=== PATIENT | male | born 1945 | race Caucasian/White ===

== ENCOUNTER 2017-10-09 17:08 | Emergency (ER) | payer MEDICARE ==
[~2017-10-09] VITALS: Ht 182.9 cm; Wt 113.6 kg
[2017-10-09 17:11] VITALS: BP 137/68; PULSE 106; RESP 16; TEMP 97.8; O2SAT 97
--- NOTE | 2017-10-09 18:21 | RADRPT ---
EXAM DATE/TIME: 10/09/2017 17:59 [place] COMPARISON: No previous studies available for comparison. INDICATIONS : Fall yesterday pain in right 4th digit. MEDICAL HISTORY : None. SURGICAL HISTORY : None. ENCOUNTER: Initial ACUITY: 1 day PAIN SCORE: 0/10 LOCATION: Right 4th digit FINDINGS: Examination of the fourth digit of the right hand demonstrates no evidence of fracture or dislocation . No radiopaque foreign bodies are seen. The soft tissues are intact. CONCLUSION: No acute bony abnormality. Tim Valenzuela MD on October 09, 2017 at 18:18 Board Certified Radiologist. This report was verified electronically.
--- NOTE | 2017-10-09 20:29 | PD ---
HPI Chief Complaint: Injury Time Seen by Provider: 20:19 Travel History International Travel<30 days: No Contact w/Intl Traveler<30days: No Traveled to known affect area: No History of Present Illness HPI Patient comes to emergency department for evaluation of his right ring finger. Patient states he had a mechanical fall yesterday where he tripped fell landing on concrete with both hands. He states when he got up he noticed his right ring finger as well as about a 45 angle at the PIP joint pointed towards his middle finger. Patient states he pulled it popped back in place. Patient complaining of pain to palpation describes a sharp stabbing-like in nature. Denies anything making this better. Pains worse when he bumps it. Denies any numbness or tingling. Denies any head injury or loss of consciousness. Denies any chest pain or shortness of breath. Patient he is unable to fully flex his finger secondary to discomfort. Patient applied ice which helps some. Reports his tetanus shot is up-to-date. Patient is [id number]. PFSH Past Medical History Cancer: Yes (postate) Tetanus Vaccination: < 5 Years Past Surgical History Other Surgery: Yes Social History Alcohol Use: No Tobacco Use: No Substance Use: No Allergies-Medications (Allergen,Severity, Reaction): Coded Allergies: penicillin G (Verified Allergy, Severe, Nausea/Vomiting, 10/09/17) Reported Meds & Prescriptions Reported Meds & Active Scripts Active Active Prescriptions or Reported Medications Unobtainable Review of Systems Except as stated in HPI: all other systems reviewed are Neg Physical Exam Narrative GENERAL: Well-developed, overly nourished, in no acute distress, and non-ill appearing. SKIN: Focused skin assessment warm and dry. Small superficial abrasion noted over medial aspect of right ring finger middle phalanx. No crepitus or foreign body. No erythematous. Afebrile. HEAD: Atraumatic. Normocephalic. EYES: Pupils equal and round. EOMI. No scleral icterus. No injection or drainage. ENT: No nasal bleeding or discharge. Mucous membranes pink and moist. NECK: Trachea midline. Supple. No nuclear rigidity. CARDIOVASCULAR: Capillary refill less than 2 seconds. RESPIRATORY: No accessory muscle use. No respiratory distress. MUSCULOSKELETAL: No obvious deformities. No clubbing. No cyanosis. No edema. Decreased range of motion right ring finger proximal phalanx with flexion secondary to pain in swelling. No crepitus. Neurovascularly intact distally. NEUROLOGICAL: Awake and alert. No obvious cranial nerve deficits. Motor grossly within normal limits. Normal speech. PSYCHIATRIC: Appropriate mood and affect; insight and judgment normal. Data Data Last Documented VS Vital Signs Date Time Temp Pulse Resp B/P (MAP) Pulse Ox O2 Delivery O2 Flow Rate FiO2 10/09/17 20:41 87 20 138/74 (95) 99 10/09/17 17:11 97.8 Room Air Orders Orders Finger ([id number]) (10/09/17 ) Ed Discharge Order (10/09/17 20:23) Splint Or Brace Apply/Monitor (10/09/17 20:23) Finger Splint (10/09/17 ) MDM Medical Decision Making Medical Screen Exam Complete: Yes Emergency Medical Condition: Yes Interpretation(s) Last Impressions Finger X-Ray 10/09/17 0000 Signed Impressions: Service Date/Time: Monday, October 09, 2017 17:59 - CONCLUSION: No acute bony abnormality. Tim Valenzuela MD Differential Diagnosis Fracture, sprain, contusion, dislocation Narrative Course There is no clinical evidence for fracture. There is no clinical evidence to suspect bony injury by exam. Radiographic examination revealed no fracture seen at this time. No obvious ligamental injury or internal derangement is noted at this time. The distal extremity appears neurovascularly intact, without evidence of neurovascular injury nor compartment syndrome. Tendon exam also was intact. The effected finger was splinted. The patient was discharged oand given warnings for vascular compromise. The patient is to follow up with hand surgeon. The patient agrees with plan. Patient in no obvious distress upon re-evaluation. All pertinent Radiology result(s) discussed with patient. Any questions/concerns in reference to patient diagnosis/condition discussed and clarified prior to patient's discharge. Reinforced sheer importance of close follow up with patient's primary physician or primary care clinic. Instructed patient to return to ED immediately, if symptoms return/worsen. Patient showed understanding of above instructions. Further instructions and recommendations were detailed in discharge paperwork. Patient ambulated without difficulty out of ED at discharge. Diagnosis Primary Impression: Injury of right ring finger Qualified Codes: S69.91XA - Unspecified injury of right wrist, hand and finger (s), initial encounter Referrals: Vanessa Carter MD Patient Instructions: Finger Dislocation (ED), General Instructions Additional Instructions: Follow-up with hand surgeon in 3-5 days for reevaluation. Use [id number] Tylenol as needed for pain. Follow instructions on the packaging. Apply ice to the affected area 20 minutes per hour as needed for pain. Wear finger splint with chris tape for comfort until reevaluated by hand surgeon. Return to the emergency department if symptoms get worse. Scripts Unable to Obtain Active Prescriptions or Reported Meds Disposition: 01 DISCHARGE HOME Condition: Stable Efrem Almaguer Oct 09, 2017 20:29
[2017-10-09 20:41] VITALS: BP 138/74
== END 2017-10-09 20:42 | disposition home or self-care (01) ==
LOC: NEPK 17:08
DX: S69.91XA Unspecified injury of right wrist, hand and finger(s), initial encounter (principal); W01.0XXA Fall on same level from slipping, tripping and stumbling without subsequent striking against object, initial encounter; Z85.46 Personal history of malignant neoplasm of prostate
CPT/HCPCS: 29130; 73140